=== PATIENT | male | born 1995 | race Caucasian/White ===

== ENCOUNTER 2018-07-23 11:51 | Emergency (ER) | payer OTHER ==
[~2018-07-23] VITALS: Ht 182.9 cm; Wt 86.6 kg
[2018-07-23 12:37] VITALS: BP 128/64
--- NOTE | 2018-07-23 12:42 | NUR ---
BACK TO ER LOBBY TO WAIT FOR AVAILABLE ROOM FOR MD OBRIEN
--- NOTE | 2018-07-23 13:56 | NUR ---
PT TO RADIOLOGY VIA
--- NOTE | 2018-07-23 14:46 | NUR ---
CONTINUES TO WAIT FOR AVAILABLE ROOM FOR MD OBRIEN--NO ACUTE DISTRESS AT THIS TIME INTERMITTENT ABDOMINAL PAIN---AMBULATORY WITH STEADY GAIT
--- NOTE | 2018-07-23 15:39 | NUR ---
PT AMBULATED TO ER BED 05
--- NOTE | 2018-07-23 16:01 | NUR ---
PT BIB SELF TO THE ED WITH THE CHIEF C/O RUQ NON-RADIATING ABDOMINAL PAIN FOR 3 DAYS. DENIES BURNING OR FREQUENCY OF URINATION. DENIES RECENT FEVER. DENIES N/V/D. DENIES ANY OTHER PROBLEM AT THIS TIME. HAD NORMAL BM TODAY. STATES PAIN OF 5/10. VSS. ER AWARE.
--- NOTE | 2018-07-23 17:56 | NUR ---
PT BEING SEEN BY ER AT THIS TIME.
[2018-07-23 18:09] VITALS: BP 115/62
== END 2018-07-23 18:10 | disposition home or self-care (01) ==
LOC: MED 11:51
DX: R10.31 Right lower quadrant pain (principal)
CPT/HCPCS: 74022; 99284

== ENCOUNTER 2021-07-19 12:29 | Emergency (ER) | payer BC, OTHER ==
[~2021-07-19] VITALS: Ht 182.9 cm; Wt 95.0 kg
[2021-07-19 13:07] VITALS: BP 139/90
[2021-07-19 13:14] VITALS: BP 139/90
[2021-07-19] MEDS ORDERED: LEVO750T51 PO (13:14)
--- NOTE | 2021-07-19 14:06 | NUR ---
pt returned from xray via wheelchair at this time, pt waiting in lobby at this time
[2021-07-19] MEDS ORDERED: CODE5SYR5 PO (15:12)
[2021-07-19] MEDS ORDERED: ALBU0.0912 IH (15:12)
--- NOTE | 2021-07-19 15:32 | NUR ---
NO NURSING CARE RENDERED, Patient discharged with v/s stable. Written and verbal after care instructions given and explained. Patient alert, oriented and verbalized understanding of instructions. Ambulatory with steady gait. All questions addressed prior to discharge. ID band removed. Patient advised to follow up with PMD. Rx PROMETH-CODEIN, VENTOLIN HFA, of given. Patient educated on indication of medication including possible reaction and side effects. Opportunity to ask questions provided and answered.
== END 2021-07-19 15:30 | disposition home or self-care (01) ==
LOC: MED 12:29
DX: J40 Bronchitis, not specified as acute or chronic (principal); Z79.899 Other long term (current) drug therapy
CPT/HCPCS: 71045; 99283